=== PATIENT | male | born 1965 | race Caucasian/White ===

== ENCOUNTER 2017-09-26 13:25 | Emergency (ER) | payer SELFPAY ==
[~2017-09-26] VITALS: Ht 180.3 cm; Wt 90.0 kg
[2017-09-26 13:30] VITALS: BP 144/89; PULSE 85; RESP 18; TEMP 98.6; O2SAT 98
[2017-09-26] MEDS ORDERED: AUGM875T3 PO (13:55)
[2017-09-26] MEDS ORDERED: FLUT1SPR5 EACH NARE (13:55)
--- NOTE | 2017-09-26 13:55 | PD ---
HPI Chief Complaint: Cold / Flu Symptoms Time Seen by Provider: 13:41 Travel History International Travel<30 days: No Contact w/Intl Traveler<30days: No Traveled to known affect area: No History of Present Illness HPI 52-year-old male here with sinus congestion and pain 3 weeks. Subjective fever. Symptom severity is moderate. No aggravating factors. Unrelieved by [id number] sinus cold and Flu medication. PFSH Past Medical History Medical History: Denies Significant Hx Influenza Vaccination: No Social History Alcohol Use: Yes (rare) Tobacco Use: No Substance Use: No Allergies-Medications (Allergen,Severity, Reaction): Coded Allergies: No Known Allergies (Unverified , 09/26/17) Reported Meds & Prescriptions Reported Meds & Active Scripts Active No Active Prescriptions or Reported Medications Review of Systems Except as stated in HPI: all other systems reviewed are Neg HENT: Positive: Congestion Physical Exam Narrative GENERAL: Alert well-appearing 52-year-old male SKIN: Warm and dry. HEAD: Normocephalic. EYES:. No injection or drainage. Ear/nose/throat: +TTP L ethmoid and maxillary sinus. NECK: Supple, trachea midline. No JVD or lymphadenopathy. CARDIOVASCULAR: Regular rate and rhythm without murmurs, gallops, or rubs. RESPIRATORY: Breath sounds equal bilaterally. No accessory muscle use. Data Data Last Documented VS Vital Signs Date Time Temp Pulse Resp B/P (MAP) Pulse Ox O2 Delivery O2 Flow Rate FiO2 09/26/17 13:30 98.6 85 18 144/89 (107) 98 MDM Medical Decision Making Medical Screen Exam Complete: Yes Emergency Medical Condition: Yes Differential Diagnosis Sinusitis, allergic rhinitis, URI Narrative Course This is a 52-year-old male here with sinusitis. He is well-appearing. No signs are stable. He'll be treated with Augmentin and Flonase Diagnosis Primary Impression: Sinusitis Qualified Codes: J01.20 - Acute ethmoidal sinusitis, unspecified Referrals: Primary Care Physician Scripts Fluticasone Nasal [place] (Flonase Nasal [place]) 50 Mcg/Act [place] 50 MCG EACH NARE BID for Allergies, #1 BOTTLE 0 Refills Prov: Pushpa Leroy [employer] 09/26/17 Amoxicillin-Clavulanate (Augmentin) 875-125 Mg Tab 1 TAB PO BID for Infection, #20 TAB 0 Refills Prov: Pushpa Leroy 09/26/17 Disposition: 01 DISCHARGE HOME Condition: Stable Pushpa Leroy Sep 26, 2017 13:55
== END 2017-09-26 14:06 | disposition home or self-care (01) ==
LOC: PHEFT 13:25
DX: J01.20 Acute ethmoidal sinusitis, unspecified (principal)
CPT/HCPCS: 99283